=== PATIENT | female | born 1985 | race Caucasian/White ===

== ENCOUNTER 2023-06-17 06:29 | Emergency (ER) | payer OTHER, SELFPAY ==
[2023-06-17 06:32] VITALS: BP 162/94
--- NOTE | 2023-06-17 07:27 | ED.GENMED ---
History of Present Illness
General
Chief Complaint: Anxiety
Source: patient
Exam Limitations: none
Time Seen by Provider: 06/17/23 07:03
Nursing documentation reviewed up to this point in time: agreed with
Travel History
Have you had any contact with someone who has COVID-19?: No
Do you have any symptoms of coronavirus? Fever > 100 degrees, chills, cough, shortness of breath, sore throat, loss of taste or smell, muscle aches, or headache?: No
History of Present Illness
History of Present Illness:
38-year-old female past medical history of ADHD anxiety and trigeminal neuralgia presenting to the emergency department today with concerns of shakiness, anxiety, palpitations that started roughly 7 hours prior to arrival to the emergency
department. She claims that she had more drinks than usual 2 nights ago and thinks this could be causing symptoms sometimes she does get anxiety after drinking. She also claims that she recently started gabapentin 100 mg once daily over the past 3
days for the neuralgia symptoms. She has had panic attacks in the past he claims this feels similar. Denies any history of heart disease any recent trauma surgery immobilization leg swelling estrogen product usage or history of PEs.
Review of Systems
Review of Systems
Allergies reviewed?: Yes
All Other Systems: ROS reviewed and negative except as documented in HPI and ROS
Phy Exam
Physical Exam
Physical Exam:
GENERAL: Alert , in no apparent distress
EYE: pupils equal and reactive
NECK: Supple, no significant adenopathy.
ENT: o/p clr, mmm.
CARDIAC: Regular rate and rhythm .
LUNGS: Clear breath sounds bilaterally, no acute respiratory distress, no wheezes/rales/rhonchi
ABDOMEN: Soft, without focal tenderness, no r/g, no cvat
NEUROLOGICAL: Alert and oriented, no focal neuro deficits
SKIN: Warm and dry, skin intact.
MUSCULOSKELETAL: No edema, well perfused.
PSYCH: Normal and appropriate interaction.
Course
Orders/Labs/Results
Orders:
Orders
06/17/23 07:17
EKG [Electrocardiogram (*1)] Urgent
Reason for Study: Tachycardia
Alprazolam [Xanax] 0.5 mg PO NOW STA
06/17/23 07:18
EKG- Treatment ONCE
06/17/23 07:34
0.9% Sodium Chloride 1000 ml [Nss] 1,000 ml IV BOLUS
06/17/23 07:35
BMP [Basic Metabolic Panel] Urgent
CBC/With Diff [Complete Blood Count/With Diff] Urgent
Magnesium Urgent
TSH Reflex To Free T4 Urgent
Abnormal Lab Results
06/17/23
07:35
WBC 11.4 H 10^3/uL
(4.8-10.8)
MCH 31.2 H pg
(27.0-31.0)
Absolute Neuts (auto) 8.5 H 10^3/uL
(1.4-6.5)
Lymphocytes % 19.0 L %
(20.5-51.1)
Carbon Dioxide 20 L mmol/L
(22-30)
06/17/23 07:35
06/17/23 07:35
Vital Signs
Initial and Last Documented VS:
Initial Vital Signs
Temp Pulse Resp BP Pulse Ox
97.4 F 120 20 162/94 100
06/17/23 06:32 06/17/23 06:32 06/17/23 06:32 06/17/23 06:32 06/17/23 06:32
Last Documented Vital Signs
Temp Pulse Resp BP Pulse Ox
97.4 F 86 9 140/89 97
06/17/23 06:32 06/17/23 07:45 06/17/23 07:45 06/17/23 07:37 06/17/23 07:45
MDM/Problems Addressed
MDM/Problems Addressed:
38-year-old female presenting to the emergency department today with concerns of palpitations anxiety over the past 7 hours or so took a hydroxyzine at home without relief. Started a new medication recently, gabapentin. Upon arrival patient is
tachycardic and somewhat tremulous. No specific findings on physical examination otherwise. Plan for labs and EKG for further assessment additionally given a dose of Xanax as she does have a significant history of panic attacks as this potentially
could be a panic attack. Labs obtained without emergent findings patient with significant improvement of symptoms after receiving Xanax. Stable for outpatient management return precautions given.
*Critical Care Note
Total Time (30-74mins, 75-104mins- exclusive of procedures): Not Applicable
ED Attending Note
-
Portions of this chart may have been created with voice recognition software.� Occasional wrong word or��sound alike� substitutions may have occurred due to the inherent limitations of voice recognition software.
Discharge Plan
Departure
Patient Disposition: Home (Routine Discharge)
Date of Disposition: 06/17/23
Time of Disposition: 09:26
Patient with high blood pressure during this ER visit?: No
Condition: Good
Covid-19: Not Applicable
Discharge Problem:
Anxiety
Instructions: Anxiety, Adult (DC)
Referrals:
Berenice Baker, DO [Family Provider] -
Activity Restrictions/Additional Instructions:
You came to the emergency department today with symptoms that are likely consistent with a panic attack or anxiety. Please follow closely with the primary care doctor and return to the emergency department for any worsening, new or concerning
symptoms.
Interventions
Interventions:
*Risk Screen - Suicide Last Done: 06/17/23 06:32
*General Assessment Last Done: 06/17/23 07:44
*Neglect/Abuse Screening Last Done: 06/17/23 06:32
*ED COVID-19 Vaccine History Last Done: 06/17/23 07:44
Discharge Date and Time
Print Language: ROMANIAN
[2023-06-17 07:37] VITALS: BP 140/89
[2023-06-17] MEDS: NSS 1000 IV (07:42)
[2023-06-17] MEDS: XANAX 0.5 MG PO (07:43)
[2023-06-17 07:46] VITALS: BMI 26.3
[2023-06-17 07:53] LABS: % Basophils 0.5 % (0-2); % Eosinophils 1.3 % (0-6); % Immature Granulocytes 0.4 % (0-0.5); % Monocytes 4.3 % (1.7-9.3); % Neutrophils 74.5 % (42.2-75.2); Absolute Basophils 0.1 10^3/uL (0-0.2); Absolute Eosinophils 0.2 10^3/uL (0-0.7); Absolute Lymphocytes 2.2 10^3/uL (1.2-3.4); Absolute Monocytes 0.5 10^3/uL (0.1-0.6); Absolute Neutrophils 8.5 10^3/uL (1.4-6.5); Hematocrit 41.4 % (37.0-47.0); Hemoglobin 14.4 g/dL (12.0-16.0); Mean Corp Hgb Conc. 34.8 g/dL (33.0-37.0); Mean Corpuscular Hgb 31.2 pg (27.0-31.0); Mean Corpuscular Volume 89.6 fL (81.0-99.0); Mean Platelet Volume 9.2 fL (7.4-10.4); Nucleated Red Blood Cells % 0 %; Platelet Count 295 10^3/uL (130-400); Red Blood Cell Count 4.62 10^6/uL (4.20-5.40); White Blood Cell Count 11.4 10^3/uL (4.8-10.8)
[2023-06-17 08:00] VITALS: BP 130/72
[2023-06-17 08:13] LABS: Blood Urea Nitrogen 9 mg/dl (7-17); Calcium 8.9 mg/dl (8.4-10.2); Carbon Dioxide 20 mmol/L (22-30); Chloride 105 mmol/L (98-107); Estimated Creatinine Clearance 96 ml/min; Glucose 85 mg/dl (70-99); Magnesium 1.8 mg/dl (1.6-2.3); Potassium 3.7 mmol/L (3.5-5.1); Sodium 135 mmol/L (135-145); eGFR > 60.00
[2023-06-17 08:36] LABS: TSH Reflex To Free T4 2.53 uIU/ml (0.47-4.68)
[2023-06-17 09:00] VITALS: BP 121/78
[2023-06-17 10:00] VITALS: BP 120/83
== END 2023-06-17 11:00 | disposition home or self-care (01) ==
LOC: EMR 06:29
PROVIDERS: Physician Assistant; EMERGENCY PHYSICIAN Emergency Medicine; FAMILY PHYSICIAN Family Medicine
DX: F41.9 Anxiety disorder, unspecified (principal)
CPT/HCPCS: 99284; 96360; 80048; 83735; 84443; 85025; 93005